=== PATIENT | male | born 1970 | race Two or more races ===

== ENCOUNTER 2024-03-26 17:03 | Emergency (ER) | payer MEDICAID, SELFPAY ==
[2024-03-26 17:20] VITALS: BP 142/91; PULSE 86; RESP 16; TEMP 36.8; O2SAT 97; BMI 26.0
--- NOTE | 2024-03-26 17:42 | XR_ITS ---
Examination: PA lateral chest 2 views Technique: Upright PA lateral chest 2 views Exam date and time: March 26, 2024 1745 hrs. Indications: Difficulty breathing today, difficulty swallowing Findings: Normal heart size No lobar pneumonia or pulmonary edema 7 mm pulmonary nodule right upper lobe The osseous structures are intact Impression: No pulmonary edema or pneumonia 7 mm pulmonary nodule right upper lobe, advise follow-up
--- NOTE | 2024-03-26 17:42 | PD.EDRME ---
Rapid Medical Screening Exam RME Arrival date/time: 03/26/24 17:03 53-year-old male presents the emergency department for complaint of choking episode today patient also reports he had a cough for a week Chief Complaint: Dental/Oral/Throat Time Seen by Provider: 03/26/24 17:09 Vital signs: Vital Signs Temperature 98.3 F 03/26/24 17:20 Pulse Rate 86 03/26/24 17:20 Respiratory Rate 16 03/26/24 17:20 Blood Pressure 142/91 H 03/26/24 17:20 Pulse Oximetry (%) 97 03/26/24 17:20 Oxygen Delivery Method Room Air 03/26/24 17:20
[2024-03-26 18:45] LABS: Strep A Rapid Negative (Negative)
--- NOTE | 2024-03-26 20:26 | PD.EDDENTL ---
ED Dental RME/HPI General Chief complaint: Dental/Oral/Throat Stated complaint: COULDN'T SWALLOW FOOD 1630 WITH DIFFICUTLY BREATHI Time Seen by Provider: 03/26/24 17:09 Source: patient Arrival date/time: 03/26/24 17:03 Mode of arrival: ambulatory Limitations: no limitations RME / HPI RME / HPI Narrative: 03/26/24 17:03 53-year-old male presents the emergency department for complaint of choking episode today patient also reports he had a cough for a week Dr. [facility] Main ED Evaluation: 53-year-old male accompanied by spouse who presents to the emergency department for complaints of 8 day history of dry cough. Patient reports he saw his PCP for this yesterday and was prescribed Sertraline, Albuterol inhaler, and Fluticasone nasal spray. Patient states today after consuming spicy food he started to have a sore throat and felt it was closing up. He reports difficulty breathing which he then used his inhaler. He comes in for further evaluation. No allergic reaction. Related Data Previous Rx's ?Medication ?Instructions ?Recorded acetaminophen 500 mg capsule 1,000 mg (2 x 500 mg) PO Q6H PRN 03/26/24 fever or pain 5 days #40 caps ibuprofen 600 mg tablet 600 mg PO Q6H PRN fever or pain 5 03/26/24 days #20 tabs Allergies Allergy/AdvReac Type Severity Reaction Status Date / Time No Known Allergies Allergy Verified 07/28/20 11:53 Review of Systems Review of Systems Systems Reviewed: All systems reviewed, normal except as documented Past Medical History Past Medical History CARDIAC: Negative Congestive Heart Failure RESPIRATORY: Negative Chronic Obstructive Pulmonary Disease (COPD) GENITOURINARY: Negative Renal Disease ENDOCRINE: Negative Diabetes Mellitus Type 1 or Diabetes Mellitus Type 2 HEMATOLOGIC: Positive Blood Disorders and Hemophilia Social History SMOKING STATUS: Never smoker SUBSTANCE USE: does not use ED Exam Narrative Physical exam: GENERAL APPEARANCE: alert and oriented x 4, well-developed, well-nourished, no acute distress VITALS: All vitals were reviewed and the pulse ox is 97% on room air, which is normal according to my interpretation. HEENT: Normocephalic, atraumatic; pupils equal, round, reactive to light; EOMI; mucous membranes pink, moist; mild erythema to posterior oropharynx NECK: Supple LUNGS: CTABL; no wheezes, no rales, no rhonchi HEART: Regular rate, regular rhythm; normal S1, S2; no murmurs ABDOMEN: non distended; normal BS; soft, no tenderness, no guarding, no rebound; no masses, no organomegaly, no hernia BACK: no CVA tenderness EXTREMITIES: atraumatic; no edema NEUROLOGIC: awake; alert and oriented x4; cranial nerves II-XII grossly intact; no focal sensory or motor deficits PSYCHIATRIC: appropriate mood and affect SKIN: warm, dry, normal color; no rashes General Limitations: Present no limitations Course Quality Measures none Orders Category Date Time Status Bedside COVID-19 Antigen Test NOW Care 03/26/24 17:42 Completed Bedside Influenza A&B Antigen Test NOW Care 03/26/24 17:42 Completed XR chest 2V Stat Exams 03/26/24 17:42 Completed Strep A Rapid Stat Lab 03/26/24 16:03 Completed Vital Signs Vital signs: Vital Signs Temperature 98.3 F 03/26/24 17:20 Pulse Rate 86 03/26/24 17:20 Respiratory Rate 16 03/26/24 17:20 Blood Pressure 142/91 H 03/26/24 17:20 Pulse Oximetry (%) 97 03/26/24 17:20 Oxygen Delivery Method Room Air 03/26/24 17:20 Dental / Oral MDM Narrative MDM Narrative:: Scribe Attestation: Radha Souza am scribing for and in the presence of Dr. Smith. Provider Notation: Although this document has been carefully reviewed, there may still be some phonetic and other typographical errors. These errors are purely grammatical due to imperfections in the software program and should not be construed in any way to compromise the substance of the patient's medical care during this visit. Patient data External records reviewed:: [facility] previous records Clinical information provided by:: patient Social determinants that could affect healthcare access:: none Patient has the following chronic illnesses:: Hemophilia How is presenting disease/condition affected by chronic disease/condition?: uneffected by Evaluation data The following diagnostics were reviewed and interpreted by me:: lab results and radiology exam(s) Lab and/or radiology exams considered but not ordered:: None Interpretation Summary: Examination: PA lateral chest 2 views Technique: Upright PA lateral chest 2 views Exam date and time: March 26, 2024 1745 hrs. Indications: Difficulty breathing today, difficulty swallowing Findings: Normal heart size No lobar pneumonia or pulmonary edema 7 mm pulmonary nodule right upper lobe The osseous structures are intact Impression: No pulmonary edema or pneumonia 7 mm pulmonary nodule right upper lobe, advise follow-up Dictated By: Abner Garcia MD Medications / Prescriptions Medications or Prescriptions considered but not ordered:: None Medication administrations:: As above, if any Consultations Consultation(s) initiated? (list below): No Diagnosis Dental Differential Diagnosis: other (Allergic reaction vs pharyngitis related to viral URI vs uvulitis) Most likely diagnosis given after review of the tests above:: Upper respiratory infection, viral, Pharyngitis Admission Indicated Admission indicated?: not indicated Admission Request Was there a request for admission?: No Disposition Plan Disposition Plan: Discharge Discharge Attestation Discharge Attestation: The patient and all family members were given an opportunity to ask questions and understood the discharge instructions. Discharge instructions specifically effects, indications for sooner follow up or return to the emergency department, and the expected course of current diagnosis. Patient condition: Stable Discharge Plan Plan Patient Disposition: HOME (Self Care) Disposition Comment: Stable for discharge Patient condition on transfer: Stable Prescriptions/Referrals Prescriptions/Med Rec: New acetaminophen 500 mg capsule 1,000 mg PO Q6H PRN (Reason: fever or pain) 5 Days Qty: 40 0RF ibuprofen 600 mg tablet 600 mg PO Q6H PRN (Reason: fever or pain) 5 Days Qty: 20 0RF Referrals: Hernandez Saleh MD [Primary Care Provider] - In 1 week Problem List Clinical Impression: Upper respiratory infection, viral, Pharyngitis Patient/Caregiver Discharge Instructions Discharge Activity: activity as tolerated Education Materials: When You Have a Sore Throat, Self-Care for Sore Throats, ED URI, Viral, No Abx (Adult) Additional Instructions: You should follow-up with your primary care doctor within the next several days. Please return to the ER if you notice that you are not getting better within 2 days or if you are worsening in any way and we will help you There are several prescriptions waiting for you at the pharmacy. You should take these and all medications as Print Language: [place] Stand Alone Forms: [employer] Info., Work/School Release, Patient Portal Info Letter
[2024-03-26] MEDS: DEXAMETHASONE SOD PHOS INJ 10 MG/ML VIAL PO (20:53)
== END 2024-03-26 20:54 | disposition home or self-care (01) ==
PROVIDERS: Nurse Practitioner Primary Care; Emergency Provider Emergency Medicine; PCP Family Medicine
DX: J02.9 Acute pharyngitis, unspecified (principal)
CPT/HCPCS: 71046; 87400; 87651; 87811; 99283; J1100